=== PATIENT | male | born 1960 | race Caucasian/White ===

== ENCOUNTER 2021-10-24 09:11 | Outpatient (CLI) | payer OTHER ==
[~2021-10-24] VITALS: Ht 172.7 cm; Wt 92.1 kg
[~2021-10-24 09:11] MED LIST: LISI20TA26 PO
[2021-10-24] MEDS ORDERED: FLUT12AE4 IH (12:57)
[2021-10-24] MEDS ORDERED: LOSA50TA63 PO (12:57)
[2021-10-24] MEDS ORDERED: ATEN25TA PO (12:57)
[2021-10-24] MEDS ORDERED: ALBU1.25 INH (12:57)
== END 2021-10-24 14:19 | disposition home or self-care (01) ==
LOC: PREOP 09:11
PROVIDERS: ATTEND Surgery
DX: Z01.818 Encounter for other preprocedural examination (principal)

== ENCOUNTER 2021-10-28 07:12 | Day surgery (SDC) | payer OTHER ==
[~2021-10-28] VITALS: Ht 172.7 cm; Wt 92.1 kg
[2021-10-28] VITALS (7 sets, daily range): BP systolic 124–167; BP diastolic 71–92
[~2021-10-28 07:12] MED LIST changes: +ALBU1.25 INH; +ATEN25TA PO; +FLUT12AE4 IH; +LOSA50TA63 PO
[2021-10-28] MEDS ORDERED: LACTATED RINGERS 1,000 ML IV STA (07:18)
--- NOTE | 2021-10-28 08:09 | Progress Note-Pre Operative ---
Pre-Operative Progress Note H&P Reviewed The H&P was reviewed, patient examined and no changes noted. Date Seen by Provider: Oct 28, 2021 Time Seen by Provider: 08:08 Date H&P Reviewed: Oct 28, 2021 Time H&P Reviewed: 08:08 Pre-Operative Diagnosis: hx polyp MICHAELA CHOE DO Oct 28, 2021 08:09
[2021-10-28] MEDS ORDERED: MIDAZOLAM 2 MG/2 ML (VERSED) VIAL ONE (08:22)
[2021-10-28] MEDS ORDERED: PROPOFOL INJECTION 50 ML IV ONE (08:22)
--- NOTE | 2021-10-28 09:00 | Discharge Inst-Simple/Standard ---
Discharge Inst-Standard Patient Instructions/Follow Up Plan of Care/Instructions/FU: 2 weeks [place] Activity as Tolerated: Yes Discharge Diet: Regular Diet MICHAELA CHOE DO Oct 28, 2021 09:00
--- NOTE | 2021-10-28 09:01 | Progress Note-Post Operative ---
Post-Operative Progess Note Surgeon (s)/Ad Operations Coordinator (s) Surgeon MICHAELA CHOE DO Ad Operations Coordinator: na Pre-Operative Diagnosis hx polyp Post-Operative Diagnosis colon polyps Procedure & Operative Findings Date of Procedure 10/28/21 Procedure Performed/Findings colonoscopy c snare polypectomy and hot bx polypectomy Anesthesia Type per netbackup engineer Estimated Blood Loss Estimated blood loss (mL): none Specimens/Packing Specimens Removed sigmoid polyp x 2 MICHAELA CHOE DO Oct 28, 2021 09:01
--- NOTE | 2021-10-28 09:38 | Anesthesia-General Post-Op ---
MAC Patient Condition Mental Status/LOC: Same as Preop Cardiovascular: Satisfactory Nausea/Vomiting: Absent Respiratory: Satisfactory Pain: Controlled Complications: Absent Post Op Complications Complications None Follow Up Care/Instructions Patient Instructions None needed. Anesthesiology Discharge Order Discharge Order Patient is doing well, no complaints, stable vital signs, no apparent adverse anesthesia problems. No complications reported per nursing. MARTHA MARQUEZ CRNA Oct 28, 2021 09:38
--- NOTE | 2021-10-29 00:35 | OPERATIVE REPORT ---
DATE OF SERVICE: 10/28/2021 PREOPERATIVE DIAGNOSIS: History of polyps. POSTOPERATIVE DIAGNOSIS: Sigmoid colon polyps x2. SURGEON: Michaela Man DO ANESTHESIA: Per [employer] BURNER. PROCEDURE: Colonoscopy with snare polypectomy and hot biopsy polypectomy. ESTIMATED BLOOD LOSS: None. COMPLICATIONS: None. INDICATIONS: The patient is a 61-year-old male with history of colon polyps. He understands risks and benefits of procedure and wishes to proceed. Consent was signed in the chart. DESCRIPTION OF PROCEDURE: The patient was taken to the endoscopy suite, placed in left lateral recumbent position. Timeout was performed. Digital rectal exam was performed. No palpable polyps, masses or ulcerations. Scope was inserted in the rectum and advanced all the way to cecum with minimal difficulty. Prep was adequate with irrigation and suction. Scope was then slowly retracted back. No polyps, masses or ulcerations in the cecum, ascending, transverse, descending colon and sigmoid colon. Two polyps were present, one snare polypectomy was performed, the other one hot biopsy polypectomy was performed. Scope was then continuously retracted back into the rectum, where it was also retroflexed noting no other pathology. Scope was returned to its normal position, slowly withdrawn until completely removed. The patient tolerated procedure well without any complications, taken to recovery room in stable condition. RECOMMENDATIONS: The patient will have repeat colonoscopy in 3 to 5 years. Any issues before that be seen at that time. The patient will follow up in office in two weeks to discuss pathology results. cc: Dr. Muñoz - requested, unable to deliver. Job ID: [id number] DocumentID: [id number] Dictated Date: 10/28/2021 09:06:52 Clinical Esthetician Date: 10/28/2021 15:16:19 Dictated By: MICHAELA MAN DO
== END 2021-10-28 09:43 | disposition home or self-care (01) ==
LOC: ENDO 07:12
PROVIDERS: ATTEND Surgery
DX: Z12.11 Encounter for screening for malignant neoplasm of colon (principal); D12.5 Benign neoplasm of sigmoid colon; J44.9 Chronic obstructive pulmonary disease, unspecified; I10 Essential (primary) hypertension; Z79.2 Long term (current) use of antibiotics; Z79.899 Other long term (current) drug therapy
CPT/HCPCS: 88305